=== PATIENT | female | born 2000 | race African-American/Black ===

== ENCOUNTER 2024-06-13 22:00 | Emergency (ER) | payer OTHER ==
[~2024-06-13] VITALS: Ht 170.2 cm; Wt 65.0 kg
[2024-06-13 22:08] VITALS: BP 103/58; PULSE 68; RESP 16; O2SAT 100
[2024-06-13 23:45] VITALS: TEMP 98.9
[2024-06-13] MEDS: ACETAMINOPHEN 325MG TABLET PO ONE (23:45)
== END 2024-06-14 03:26 | disposition home or self-care (01) ==
LOC: ER 22:27
DX: M79.605 Pain in left leg (principal); M79.604 Pain in right leg
CPT/HCPCS: 93970; 99284